=== PATIENT | male | born 1975 | race Caucasian/White ===

== ENCOUNTER 2016-09-15 10:26 | Inpatient (IN) | payer OTHER ==
--- NOTE | 2016-09-15 10:45 | PDOC ---
History of Present Illness <Vamsi Johnson - Last Filed: 09/15/16 13:48> - General History Source: Patient, Family Exam Limitations: No Limitations - History of Present Illness Initial Comments: 09/15/16 11:14 The patient is a 41 year old male with a significant past medical history of diabetes, brought by ambulance to the Emergency Department with vomiting for two days. The patients family reports that the patient has been experiencing nausea and vomiting for two days. The patients family reports that his sugar levels were 440 this morning, which dropped to 240 after taking insulin. The patient states that he has been on insulin for over two years. The patient denies diarrhea, or constipation. Patient denies fever, chills, and cough. Patient denies chest pain, palpitations, and shortness of breath. Surgical Hx: cholecystectomy <Katie Campbell - Last Filed: 09/15/16 14:12> - General Chief Complaint: Vomiting/Diarrhea Stated Complaint: VOMITTING/WEAKNESS Time Seen by Provider: 09/15/16 10:44 Past History <Vamsi Johnson - Last Filed: 09/15/16 13:48> <Katie Campbell - Last Filed: 09/15/16 14:12> - Past Medical History Allergies/Adverse Reactions: Allergies Allergy/AdvReac Type Severity Reaction Status Date / Time No Known Allergies Allergy Verified 09/15/16 10:38 Home Medications: Ambulatory Orders Gabapentin [Neurontin -] 300 mg PO Q4HWA 09/15/16 Insulin Lispro [Humalog] 20 unit SQ HS 09/15/16 Review of Systems - Review of Systems Able to Perform ROS?: Yes Comments:: 09/15/16 11:15 GENERAL/CONSTITUTIONAL: + high blood sugar levels. No fever or chills. No weakness. HEAD, EYES, EARS, NOSE AND THROAT: No change in vision. No ear pain or discharge. No sore throat. CARDIOVASCULAR: No chest pain or shortness of breath. RESPIRATORY: No cough, wheezing, or hemoptysis. GASTROINTESTINAL: + nausea, + vomiting. No diarrhea or constipation. GENITOURINARY: No dysuria, frequency, or change in urination. MUSCULOSKELETAL: No joint or muscle swelling or pain. No neck or back pain. SKIN: No rash NEUROLOGIC: No headache, vertigo, loss of consciousness, or change in strength/ sensation. ENDOCRINE: No increased thirst. No abnormal weight change. HEMATOLOGIC/LYMPHATIC: No anemia, easy bleeding, or history of blood clots. ALLERGIC/IMMUNOLOGIC: No hives or skin allergy. <Katie Campbell - Last Filed: 09/15/16 14:12> *Physical Exam - Vital Signs Last Vital Signs Temp Pulse Resp BP Pulse Ox 104 H 18 109/90 09/15/16 10:30 09/15/16 10:30 09/15/16 10:30 - Physical Exam Comments: 09/15/16 11:15 GENERAL: Awake, alert, and fully oriented, in no acute distress HEAD: No signs of trauma EYES: PERRLA, EOMI, sclera anicteric, conjunctiva clear ENT: Dry mucous membranes. Auricles normal inspection, hearing grossly normal, nares patent, oropharynx clear without exudates. NECK: Normal ROM, supple, no lymphadenopathy, JVD, or masses LUNGS: Breath sounds equal, clear to auscultation bilaterally. No wheezes, and no crackles HEART: Regular rate and rhythm, normal S1 and S2, no murmurs, rubs or gallops ABDOMEN: Soft, nontender, normoactive bowel sounds. No guarding, no rebound. No masses EXTREMITIES: Normal range of motion, no edema. No clubbing or cyanosis. No cords, erythema, or tenderness NEUROLOGICAL: Cranial nerves II through XII grossly intact. Normal speech SKIN: Warm, Dry, bad skin turgor, no rashes or lesions noted. <Katie Campbell - Last Filed: 09/15/16 14:12> Heart Score/ECG Review #1 ECG reviewed & interpreted by me at: 13:12 (EKG reviewed by Dr. Johnson. IMPRESSION: Normal sinus rhythm. Normal axis. Normal rate. Normal EKG. Vent rate 87bpm.) <Katie Campbell - Last Filed: 09/15/16 14:12> ED Treatment Course - LABORATORY CBC & Chemistry Diagram: 09/15/16 11:45 09/15/16 11:45 <Vamsi Johnson - Last Filed: 09/15/16 13:48> - LABORATORY CBC & Chemistry Diagram: 09/15/16 11:45 09/15/16 11:45 - RADIOLOGY Radiograph Interpretation: 09/15/16 12:21 Chest XRay As reviewed by Dr. Jesus Daniel IMPRESSION: Normal chest film. <Katie Campbell - Last Filed: 09/15/16 14:12> Medical Decision Making - Critical Care Time Total Critical Care Time (minutes): 30 (DKA) Critical Care Statement: The care of this patient involved high complexity decision making to prevent further life threatening deterioration of the patient 's condition and/or to evalute & treat vital organ system(s) failure or risk of failure. - Medical Decision Making 09/15/16 13:06 Dr. Swan was called at her office at 1:[address] Johnson about the patient's care. Will call consults for ID and Endocrinology. The patient was informed that he is in DKA. He now admits that he had fevers, chills, and a cough last night. Dr. Gonzalez was called at his office at 1:[address] Johnson about his care. Dr. Talamantes was called at his office at 1:[address] Johnson about his care. ICU was called at 1:30. Waiting for Dr. Hernandez to return call. 09/15/16 13:39 Dr. Hernandez returned call at 1:[address] Johnson about the patient' s admission. <Katie Campbell - Last Filed: 09/15/16 14:12> *DC/Admit/Observation/Transfer - Discharge Dispostion Admit: Yes - Attestations Physician Attestion: 09/15/16 10:45 I, Dr. Vamsi Johnson, attest that this document has been prepared under my direction and personally reviewed by me in its entirety. I further attest, that it accurately reflects all work, treatment, procedures and medical decision -making performed by me. <Vamsi Johnson - Last Filed: 09/15/16 13:48> - Attestations Scribe Attestion: 09/15/16 11:15 Documentation prepared by Katie Campbell, acting as medical malpractice paralegal for Vamsi Johnson DO. <Katie Campbell - Last Filed: 09/15/16 14:12> Diagnosis at time of Disposition: DKA (diabetic ketoacidoses) Qualifiers: Diabetes mellitus type: type 2 Diabetes mellitus complication detail: without coma Qualified Code(s): E13.10 - Other specified diabetes mellitus with ketoacidosis without coma Aspiration into lower respiratory tract Qualifiers: Encounter type: initial encounter Qualified Code(s): T17.800A - Unspecified foreign body in other parts of respiratory tract causing asphyxiation, initial encounter - Discharge Dispostion Condition at time of disposition: Critical
[2016-09-15] MEDS ORDERED: SODIUM CHLORIDE 1,000 ML IV STA ×2 (11:12→13:09)
[2016-09-15] MEDS ORDERED: ONDANSETRON 4 MG/2 ML VIAL IVPB ONE ×2 (11:12→14:35)
[2016-09-15] MEDS ORDERED: ONDANSETRON 4 MG/2 ML VIAL ONE ×3 (11:39→19:54)
[2016-09-15 11:54] LABS: BASOPHIL 0.5 % (0-2.0); MCH 30.1 pg (25.7-33.7); MCHC 33.7 g/dl (32.0-35.9); MEAN CELL VOLUME 89.4 fl (80-96); MEAN PLT VOLUME 10.5 fl (7.5-11.1); PLATELET COUNT 207 K/MM3 (134-434)
[2016-09-15 12:09] LABS: INR 1.01 (0.82-1.09); PROTHROMBIN TIME (PATIENT) 11.1 SEC (9.98-11.88)
[2016-09-15 12:13] LABS: ALBUMIN 4.3 g/dl (3.4-5.0); ANION GAP 18 (8-16); BILIRUBIN,TOTAL 0.6 mg/dL (0.2-1.0); CALCIUM 9.6 mg/dL (8.5-10.1); CO2 20 mmol/L (21-32); CREATININE 1.4 mg/dL (0.7-1.3); GLUCOSE,RANDOM 279 mg/dL (74-106); SGPT/ALT 32 U/L (12-78); TOT PROT 8.6 g/dl (6.4-8.2)
[2016-09-15 12:14] LABS: ALK PHOS 111 U/L (45-117)
[2016-09-15 12:15] LABS: SGOT/AST 16 U/L (15-37)
[2016-09-15 12:44] LABS: ARTERIAL BLD GAS O2 SATURATION 97.9 % (90-98.9)
[2016-09-15 12:45] LABS: ALLENS TEST POSITIVE; ART PUNCT SITE LEFT RADIAL; ARTERIAL BLOOD GAS HCO3 14.2 meq/L (22-26); ARTERIAL BLOOD GAS pH 7.28 (7.35-7.45); LPM/O2% 21%; PT. ON O2? NO; TYPE OF O2 R/A
[2016-09-15 12:47] LABS: ACETONE SERUM POSITIVE MODERATE 2+ (NEGATIVE)
[2016-09-15 12:47] LABS: METHEMOGLOBIN 1.2 % (0.4-1.5)
[2016-09-15] MEDS ORDERED: INSULIN REGULAR HUMAN 100 UNITS/ML *VIAL IVPUSH ONE (12:56)
[2016-09-15] MEDS ORDERED: INSULIN REGULAR 100 UNITS in SODIUM CHLORIDE 99 ML IVPB SCH ×3 (13:00→23:15)
[2016-09-15] MEDS ORDERED: PIPERACILLIN/TAZOB 3.375 GM/50 ML PRE-DOCKED IV ONE (13:47)
[2016-09-15] MEDS ORDERED: PIPERACILLIN/TAZOB 3.375 GM 50 ML IVPB ONE (14:21)
--- NOTE | 2016-09-15 15:48 | EKG ---
Test Reason : Blood Pressure : / mmHG Vent. Rate : 087 BPM Atrial Rate : 087 BPM P-R Int : 126 ms QRS Dur : 084 ms QT Int : 404 ms P-R-T Axes : 079 082 073 degrees QTc Int : 486 ms NORMAL SINUS RHYTHM PROLONGED QT ABNORMAL ECG NO PREVIOUS ECGS AVAILABLE Confirmed by ABELINO SCHAEFER, DANIEL ([id number]) on 09/15/2016 3:48:06 PM Referred By: Confirmed By:DANIEL ROCA MD
--- NOTE | 2016-09-15 16:42 | CONSULT ---
Consult Consult Specialty:: infectious diseases Reason for Consultation:: cough,weakness - History of Present Illness History of Present Illness: 41 year old male with a significant past medical history of diabetes, t with vomiting for two days. The patients family reports that the patient has been experiencing nausea and vomiting for two days. The patients family reports that his sugar levels were 440 this morning, which dropped to 240 after taking insulin. The patient states that he has been on insulin for over two years. patient is non compliant patient complaints of cough but does not have sputum production - History Source History Provided By: Patient, Family Member - Alcohol/Substance Use Hx Alcohol Use: No - Smoking History Smoking history: Never smoked Home Medications - Allergies Allergies/Adverse Reactions: Allergies Allergy/AdvReac Type Severity Reaction Status Date / Time No Known Allergies Allergy Verified 09/15/16 10:38 - Home Medications Home Medications: Ambulatory Orders Gabapentin [Neurontin -] 300 mg PO Q4HWA 09/15/16 Insulin Lispro [Humalog] 20 unit SQ HS 09/15/16 Review of Systems - Review of Systems Constitutional: reports: No Symptoms Eyes: reports: No Symptoms HENT: reports: No Symptoms Neck: reports: No Symptoms Cardiovascular: reports: No Symptoms Respiratory: reports: No Symptoms Gastrointestinal: reports: Nausea, Vomiting Genitourinary: reports: No Symptoms Breasts: reports: No Symptoms Reported Musculoskeletal: reports: No Symptoms Integumentary: reports: No Symptoms Neurological: reports: Change in LOC Endocrine: reports: No Symptoms Hematology/Lymphatic: reports: No Symptoms Psychiatric: reports: No Symptoms Physical Exam Vital Signs: Vital Signs Temperature Pulse Rate 104 H 09/15/16 10:30 Respiratory Rate 18 09/15/16 10:30 Blood Pressure 109/90 09/15/16 10:30 O2 Sat by Pulse Oximetry (%) Constitutional: Yes: Calm, Mild Distress, Other Eyes: Yes: Conjunctiva Clear HENT: Yes: Atraumatic Neck: Yes: Supple Cardiovascular: Yes: Regular Rate and Rhythm Respiratory: Yes: Regular, CTA Bilaterally Gastrointestinal: Yes: Normal Bowel Sounds, Soft Musculoskeletal: Yes: WNL Extremities: Yes: WNL Neurological: Yes: Alert, Oriented Psychiatric: Yes: Alert, Oriented Imaging - Results Chest X-ray: Report Reviewed, Image Reviewed Assessment/Plan - Problems (1) Aspiration into lower respiratory tract Code(s): T17.800A - UNSP FOREIGN BODY IN OTH PRT RESP TRACT CAUSING ASPHYX, INIT Qualifiers: Encounter type: initial encounter Qualified Code(s): T17.800A - Unspecified foreign body in other parts of respiratory tract causing asphyxiation, initial encounter (2) DKA (diabetic ketoacidoses) Code(s): E13.10 - OTH DIABETES MELLITUS WITH KETOACIDOSIS WITHOUT COMA Qualifiers: Diabetes mellitus type: type 2 Diabetes mellitus complication detail: without coma Qualified Code(s): E13.10 - Other specified diabetes mellitus with ketoacidosis without coma patient with anion gap metabolic acidosis being admitted to icu plan hydration insulin electrolyte mgmt rest as per icu,[facility]o to evaluate the patient will start on zosyn cc time 45 min
[2016-09-15 18:33] VITALS: BMI 18.8
[2016-09-15] MEDS ORDERED: PNEUMOC 13-VAL CONJ-DIP CRM/PF 0.5 ML DISP.SYRIN IM ONE (18:33)
[2016-09-15 18:37] LABS: ARTERIAL BLD GAS O2 SATURATION 97.4 % (90-98.9); ARTERIAL BLOOD GAS BASE EXCESS -11.1 meq/l (-2-2)
[2016-09-15 18:38] LABS: ALLENS TEST POSITIVE; ART PUNCT SITE RIGHT RADIAL; LPM/O2% ROOM AIR; PT. ON O2? NO
[2016-09-15 18:40] LABS: ARTERIAL BLOOD GAS pH 7.29 (7.35-7.45)
[2016-09-15] MEDS: PIPERACILLIN/TAZOB 3.375 GM 50 ML IVPB SCH (18:47)
[2016-09-15 20:25] LABS: MCH 29.6 pg (25.7-33.7); MCHC 33.1 g/dl (32.0-35.9); MEAN CELL VOLUME 89.4 fl (80-96); MEAN PLT VOLUME 10.6 fl (7.5-11.1); PLATELET COUNT 175 K/MM3 (134-434); RDW 13.5 % (11.9-15.9); WHITE BLOOD COUNT 15.2 K/mm3 (4.0-10.0)
[2016-09-15 20:53] LABS: ALBUMIN 3.2 g/dl (3.4-5.0); ANION GAP 17 (8-16); BILIRUBIN,TOTAL 0.5 mg/dL (0.2-1.0); CALCIUM 8.1 mg/dL (8.5-10.1); CO2 15 mmol/L (21-32); GLUCOSE,RANDOM 202 mg/dL (74-106); SGOT/AST 11 U/L (15-37); SGPT/ALT 22 U/L (12-78); TOT PROT 6.5 g/dl (6.4-8.2)
[2016-09-15 20:54] LABS: ALK PHOS 84 U/L (45-117)
--- NOTE | 2016-09-15 21:21 | CONSULT ---
Consult Consult Specialty:: Pulm/CCM Reason for Consultation:: DKA - History of Present Illness Chief Complaint: Nausea and vomiting History of Present Illness: 41 yom with PMHx of DMII c/b peripheral neuropathy who was BIBA with c/o n/v for two days. The patients family reports that his sugar levels were 440 this morning, which dropped to 240 after taking insulin. The patient states that he has been on insulin for over ten years. In ED ph7.28, AG 18, HCO3 20, WBC 15 with 88% neuts. Urine + acetone, lipase 333. Pt reported fever,chills and cough the previous night. CXR clear. Blood cxls sent. Fluid bolus given. Started empirically on Zosyn. Transferred to ICU for further management. In ICU pt A+O x3. C/o malaise and abd pain. BP 111/77, HR 86; O2 sat 100% on room air. Regular cough with gagging and vomiting. Reports 2 episodes of diarrhea night prior to admission. Denies sick contacts. Reported one previous episode of DKA but does not remember the setting. Restarted insulin drip. BG 202. Cont IVF and antibiotics. - History Source History Provided By: Patient, Medical Record Limitations to Obtaining History: No Limitations - Alcohol/Substance Use Hx Alcohol Use: No - Smoking History Smoking history: Never smoked Home Medications - Allergies Allergies/Adverse Reactions: Allergies Allergy/AdvReac Type Severity Reaction Status Date / Time No Known Allergies Allergy Verified 09/15/16 10:38 - Home Medications Home Medications: Ambulatory Orders Gabapentin [Neurontin -] 300 mg PO Q4HWA 09/15/16 Insulin Lispro [Humalog] 20 unit SQ HS 09/15/16 Family Disease History - Family Disease History Family History: Unremarkable Review of Systems - Review of Systems Constitutional: reports: Loss of Appetite, Weakness Eyes: reports: No Symptoms HENT: reports: No Symptoms Neck: reports: No Symptoms Cardiovascular: reports: No Symptoms Respiratory: reports: Cough Gastrointestinal: reports: Abdominal Pain, Vomiting Genitourinary: reports: No Symptoms Musculoskeletal: reports: No Symptoms Integumentary: reports: No Symptoms Neurological: reports: No Symptoms Endocrine: reports: No Symptoms Hematology/Lymphatic: reports: No Symptoms Psychiatric: reports: No Symptoms Physical Exam Vital Signs: Vital Signs Temperature 99.6 F 09/15/16 18:17 Pulse Rate 86 09/15/16 20:16 Respiratory Rate 16 09/15/16 20:16 Blood Pressure 117/82 09/15/16 20:16 O2 Sat by Pulse Oximetry (%) 99 09/15/16 20:17 Constitutional: Yes: Well Nourished Eyes: Yes: WNL HENT: Yes: Normocephalic Neck: Yes: Supple Respiratory: Yes: Regular, CTA Bilaterally, Cough Gastrointestinal: Yes: Soft Musculoskeletal: Yes: WNL Extremities: Yes: WNL Edema: No Peripheral Pulses WNL: Yes Integumentary: Yes: Tattoos Neurological: Yes: Alert, Oriented ...Motor Strength: WNL Labs: CBC, BMP 09/15/16 20:02 09/15/16 20:02 Problem List - Problems (1) Aspiration into lower respiratory tract Code(s): T17.800A - UNSP FOREIGN BODY IN OTH PRT RESP TRACT CAUSING ASPHYX, INIT Qualifiers: Encounter type: initial encounter Qualified Code(s): T17.800A - Unspecified foreign body in other parts of respiratory tract causing asphyxiation, initial encounter (2) DKA (diabetic ketoacidoses) Code(s): E13.10 - OTH DIABETES MELLITUS WITH KETOACIDOSIS WITHOUT COMA Qualifiers: Diabetes mellitus type: type 2 Diabetes mellitus complication detail: without coma Qualified Code(s): E13.10 - Other specified diabetes mellitus with ketoacidosis without coma Assessment/Plan 41yom with PMHx of DMII on insulin now with DKA m/l in setting of infection. Plan: -Insulin drip; adjust per q1 fingerstick -Continue IVF -Switch to D5NS@125 -Monitor Potassium and BMP q4-6h -Replete electrolytes -f/u cultures -apprec ID consult -Cont Zosyn -monitor UOP -Zofran and reglan for n/v -Aspiration precautions. -NPO for now; advance diet when tolerated -Endocrine consult.
[2016-09-15] MEDS: ONDANSETRON 4 MG/2 ML VIAL IVPB PRN (21:23)
[2016-09-15] MEDS ORDERED: DEXTROSE 5%-NORMAL SALINE 1,000 ML IV SCH (22:15)
[2016-09-15 22:29] LABS: MAGNESIUM 1.5 mg/dL (1.8-2.4); PHOSPHOROUS 2.8 mg/dL (2.5-4.9)
[2016-09-15] MEDS: METOCLOPRAMIDE HCL INJECTION 10 MG/2 ML VIAL IVPB SCH (23:00)
[2016-09-15] MEDS ORDERED: MAGNESIUM SULF 50% (8.12 MEQ/2 ML-1 GM VIAL) IVPB ONE (23:09)
[2016-09-15] MEDS ORDERED: SODIUM CHLORIDE 0.45% 1,000 ML IV SCH (23:30)
[2016-09-16 00:22] LABS: ANION GAP 15 (8-16); CALCIUM 7.8 mg/dL (8.5-10.1); CO2 18 mmol/L (21-32); GLUCOSE,RANDOM 222 mg/dL (74-106)
--- NOTE | 2016-09-16 00:37 | CONSULT ---
Consult Consult Specialty:: endocrine Referred by:: dr.rocco mondragon Reason for Consultation:: dka - History of Present Illness Chief Complaint: nausea and vomiting History of Present Illness: 41 year old male with a significant past medical history of diabetes, brought by ambulance to the Emergency Department with vomiting for two days. The patient s family reports that the patient has been experiencing nausea and vomiting for two days. The patients family reports that his sugar levels were 440 this morning, which dropped to 240 after taking insulin. he has been diabetic for past 10 years,has diabetic foot pain and limited walking ability - History Source History Provided By: Patient - Alcohol/Substance Use Hx Alcohol Use: No - Smoking History Smoking history: Never smoked Home Medications - Allergies Allergies/Adverse Reactions: Allergies Allergy/AdvReac Type Severity Reaction Status Date / Time No Known Allergies Allergy Verified 09/15/16 10:38 - Home Medications Home Medications: Ambulatory Orders Gabapentin [Neurontin -] 300 mg PO Q4HWA 09/15/16 Insulin Lispro [Humalog] 20 unit SQ HS 09/15/16 Review of Systems - Review of Systems Constitutional: reports: Lethargy Eyes: reports: Blurred Vision HENT: reports: No Symptoms Neck: reports: No Symptoms Cardiovascular: reports: No Symptoms Respiratory: reports: No Symptoms Gastrointestinal: reports: Nausea Genitourinary: reports: No Symptoms Breasts: reports: No Symptoms Reported Musculoskeletal: reports: Extremity Pain, Muscle Pain, Muscle Cramps Integumentary: reports: No Symptoms Neurological: reports: Weakness Endocrine: reports: Unexplained Weight Loss Hematology/Lymphatic: reports: No Symptoms Psychiatric: reports: No Symptoms Physical Exam Vital Signs: Vital Signs Temperature 99.6 F 09/15/16 18:17 Pulse Rate 86 09/15/16 20:16 Respiratory Rate 16 09/15/16 20:16 Blood Pressure 117/82 09/15/16 20:16 O2 Sat by Pulse Oximetry (%) 99 09/15/16 20:17 Constitutional: Yes: Anxious Eyes: Yes: EOM Intact HENT: Yes: Normocephalic Neck: Yes: Trachea Midline Cardiovascular: Yes: Regular Rate and Rhythm Respiratory: Yes: CTA Bilaterally Gastrointestinal: Yes: Normal Bowel Sounds, Vomiting ...Rectal Exam: Yes: Deferred Renal/: Yes: WNL Breast(s): Yes: WNL Musculoskeletal: Yes: WNL Extremities: Yes: WNL Integumentary: Yes: WNL Neurological: Yes: WNL, Alert, Oriented Labs: CBC, BMP 09/15/16 20:02 09/16/16 00:00 Problem List - Problems (1) DKA (diabetic ketoacidoses) Code(s): E13.10 - OTH DIABETES MELLITUS WITH KETOACIDOSIS WITHOUT COMA Qualifiers: Diabetes mellitus type: type 2 Diabetes mellitus complication detail: without coma Qualified Code(s): E13.10 - Other specified diabetes mellitus with ketoacidosis without coma Assessment/Plan Current Active Problems Aspiration into lower respiratory tract (Acute) DKA (diabetic ketoacidoses) (Acute) Abnormal Lab Results 09/15/16 09/15/16 09/15/16 11:45 11:45 12:40 WBC 16.0 H Neutrophils % 88.0 H Lymphocytes % 6.0 L ABG pH 7.28 L ABG pCO2 at Pt Temp 30.8 L ABG pO2 at Pt Temp 111.0 H ABG HCO3 14.2 L* ABG Base Excess -11.0 L* Sodium 135 L Potassium 5.4 H Chloride 97 L Carbon Dioxide 20 L Anion Gap 18 H BUN 24 H Creatinine 1.4 H Random Glucose 279 H Serum Osmolality Calcium Magnesium AST Total Protein 8.6 H Albumin Total Amylase 09/15/16 09/15/16 09/15/16 18:30 20:02 20:02 WBC 15.2 H Neutrophils % Lymphocytes % ABG pH 7.29 L ABG pCO2 at Pt Temp 30.4 L ABG pO2 at Pt Temp 102.0 H ABG HCO3 14.0 L* ABG Base Excess -11.1 L* Sodium Potassium Chloride 109 H D Carbon Dioxide 15 L D Anion Gap 17 H BUN Creatinine Random Glucose 202 H D Serum Osmolality Calcium 8.1 L Magnesium AST 11 L D Total Protein Albumin 3.2 L D Total Amylase 09/15/16 09/15/16 09/16/16 21:35 21:56 00:00 WBC Neutrophils % Lymphocytes % ABG pH ABG pCO2 at Pt Temp ABG pO2 at Pt Temp ABG HCO3 ABG Base Excess Sodium Potassium Chloride 108 H Carbon Dioxide 18 L Anion Gap BUN Creatinine Random Glucose 222 H Serum Osmolality 308 H Calcium 7.8 L Magnesium 1.5 L AST Total Protein Albumin Total Amylase 123 H plan: ivd5.5ns @175/hr iv insulin ip bgm q1hrs scale for controll repeat bmp 4 hrs
--- NOTE | 2016-09-16 00:51 | HP ---
Admitting History and Physical - Admission History of Present Illness: The patient is a 41 year old male with a significant past medical history of diabetes, brought by ambulance to the Emergency Department with vomiting for two days. The patients family reports that the patient has been experiencing nausea and vomiting for two days. The patients family reports that his sugar levels were 440 this morning, which dropped to 240 after taking insulin. The patient states that he has been on insulin for over two years. - Past Medical History Endocrine: Yes: Diabetes Mellitus - Smoking History Smoking history: Never smoked - Alcohol/Substance Use Hx Alcohol Use: No Home Medications - Allergies Allergies/Adverse Reactions: Allergies Allergy/AdvReac Type Severity Reaction Status Date / Time No Known Allergies Allergy Verified 09/15/16 10:38 - Home Medications Home Medications: Ambulatory Orders Gabapentin [Neurontin -] 300 mg PO Q4HWA 09/15/16 Insulin Lispro [Humalog] 20 unit SQ HS 09/15/16 Family Disease History - Family Disease History Family History: Unremarkable Review of Systems - Review of Systems Constitutional: reports: Weakness Eyes: reports: No Symptoms HENT: reports: No Symptoms Neck: reports: No Symptoms Cardiovascular: reports: No Symptoms Respiratory: reports: No Symptoms Gastrointestinal: reports: Abdominal Pain, Nausea, Vomiting Genitourinary: denies: No Symptoms Physical Examination Vital Signs: Vital Signs Temperature 99.6 F 09/15/16 18:17 Pulse Rate 86 09/15/16 20:16 Respiratory Rate 16 09/15/16 20:16 Blood Pressure 117/82 09/15/16 20:16 O2 Sat by Pulse Oximetry (%) 99 09/15/16 20:17 Constitutional: Yes: No Distress Eyes: Yes: WNL HENT: Yes: WNL Neck: Yes: WNL, Supple Cardiovascular: Yes: WNL, Regular Rate and Rhythm Respiratory: Yes: WNL, Regular, CTA Bilaterally Gastrointestinal: Yes: WNL, Normal Bowel Sounds, Soft Musculoskeletal: Yes: WNL Extremities: Yes: WNL Edema: No Neurological: Yes: WNL, Alert, Oriented ...Motor Strength: WNL Labs: CBC, BMP 09/15/16 20:02 09/16/16 00:00 Problem List - Problems (1) DKA (diabetic ketoacidoses) Assessment/Plan: Pt started on IV insulip drip ICU monitoring Endo consult Cont IVF Code(s): E13.10 - OTH DIABETES MELLITUS WITH KETOACIDOSIS WITHOUT COMA Qualifiers: Diabetes mellitus type: type 2 Diabetes mellitus complication detail: without coma Qualified Code(s): E13.10 - Other specified diabetes mellitus with ketoacidosis without coma
[2016-09-16] MEDS: PIPERACILLIN/TAZOB 3.375 GM 50 ML IVPB SCH ×2 (04:04→10:11)
[2016-09-16 05:18] LABS: URINE APPEARANCE CLEAR; URINE BILIRUBIN NEGATIVE (NEGATIVE); URINE COLOR STRAW; URINE GLUCOSE (UA) 3+ (NEGATIVE); URINE KETONE 2+ (NEGATIVE); URINE LEUK ESTERASE NEGATIVE (NEGATIVE); URINE NITRITE NEGATIVE (NEGATIVE); URINE PROTEIN NEGATIVE (NEGATIVE); URINE UROBILINOGEN NEGATIVE E.U./dl (0.2-1.0)
[2016-09-16 05:19] LABS: URINE BLOOD 1+ (NEGATIVE)
[2016-09-16 05:20] LABS: URINE RBC 3 /hpf (0-3); URINE WBC 2 /hpf (3-5)
[2016-09-16] MEDS: METOCLOPRAMIDE HCL INJECTION 10 MG/2 ML VIAL IVPB SCH ×3 (05:34→21:38)
[2016-09-16] MEDS: ONDANSETRON 4 MG/2 ML VIAL IVPB PRN (05:34)
[2016-09-16] MEDS ORDERED: D5-NS + 20 MEQ KCL - 1,000 ML IV SCH (06:00)
[2016-09-16 06:33] LABS: MCH 29.8 pg (25.7-33.7); MCHC 33.6 g/dl (32.0-35.9); MEAN CELL VOLUME 88.7 fl (80-96); MEAN PLT VOLUME 10.2 fl (7.5-11.1); PLATELET COUNT 177 K/MM3 (134-434); WHITE BLOOD COUNT 13.8 K/mm3 (4.0-10.0)
[2016-09-16 06:57] LABS: ALBUMIN 2.9 g/dl (3.4-5.0); ANION GAP 12 (8-16); CALCIUM 8.2 mg/dL (8.5-10.1); CO2 21 mmol/L (21-32); GLUCOSE,RANDOM 162 mg/dL (74-106)
[2016-09-16 07:03] LABS: ALK PHOS 74 U/L (45-117); BILIRUBIN,TOTAL 0.5 mg/dL (0.2-1.0); SGOT/AST 12 U/L (15-37); SGPT/ALT 20 U/L (12-78); TOT PROT 5.7 g/dl (6.4-8.2); TROPONIN I < 0.02 ng/ml (0.00-0.05)
[2016-09-16] MEDS: HEPARIN NA (PORCINE) 5,000 UNITS/ML 1ML VIAL SQ SCH ×2 (10:11→21:38)
--- NOTE | 2016-09-16 12:10 | PN ---
Physical Exam: SUBJECTIVE: Patient seen and examined in ICU. He is feeling better today but still weak and a little bit nauseous. OBJECTIVE: Vital Signs Period Temp Pulse Resp BP Sys/[place] Pulse Ox Last 24 Hr 97.9 F-99.6 F 73-106 16-18 94-126/61-82 99-99 GENERAL: The patient is awake, alert, and fully oriented, in no acute distress. HEAD: Normal with no signs of trauma. EYES: extraocular movements intact, sclera anicteric, conjunctiva clear. ENT: oropharynx clear without exudates, moist mucous membranes. NECK: Trachea midline, full range of motion, supple. LUNGS: Breath sounds equal, clear to auscultation bilaterally, no wheezes, no crackles, no accessory muscle use. HEART: Regular rate and rhythm, S1, S2 without murmur, rub or gallop. ABDOMEN: Soft, nontender, nondistended, normoactive bowel sounds, no guarding, no rebound, no hepatosplenomegaly, no masses. EXTREMITIES: 2+ pulses, warm, no edema. NEUROLOGICAL: No facial asymmetry, normal speech, gait not observed. PSYCH: Normal mood, normal affect. SKIN: Warm, dry, normal turgor, no rashes or lesions noted Laboratory Results - last 24 hr 09/15/16 09/15/16 09/15/16 14:26 16:12 18:30 WBC RBC Hgb Hct MCV MCHC RDW Plt Count MPV Puncture Site Right radial ABG pH 7.29 L ABG pCO2 at Pt Temp 30.4 L ABG pO2 at Pt Temp 102.0 H ABG HCO3 14.0 L* ABG O2 Sat (Measured) 97.4 ABG O2 Content 17.5 ABG Base Excess -11.1 L* William Test Positive Oxygen Flow Rate Room air PEEP 0.0 Sodium Potassium Chloride Carbon Dioxide Anion Gap BUN Creatinine Creat Clearance w eGFR POC Glucometer 248.14824 189.19454 Random Glucose Hemoglobin A1c % Serum Osmolality Calcium Phosphorus Magnesium Total Bilirubin AST ALT Alkaline Phosphatase Creatine Kinase Troponin I Total Protein Albumin Total Amylase Lipase Urine Color Urine Appearance Urine pH Urine Protein Urine Glucose (UA) Urine Ketones Urine Blood Urine Nitrite Urine Bilirubin Urine Urobilinogen Ur Leukocyte Esterase Urine RBC Urine WBC Ur Epithelial Cells 09/15/16 09/15/16 09/15/16 18:55 20:02 20:02 WBC 15.2 H RBC 4.52 Hgb 13.4 D Hct 40.4 D MCV 89.4 MCHC 33.1 RDW 13.5 Plt Count 175 MPV 10.6 Puncture Site ABG pH ABG pCO2 at Pt Temp ABG pO2 at Pt Temp ABG HCO3 ABG O2 Sat (Measured) ABG O2 Content ABG Base Excess William Test Oxygen Flow Rate PEEP Sodium 141 Potassium 4.3 D Chloride 109 H D Carbon Dioxide 15 L D Anion Gap 17 H BUN 17 D Creatinine 1.0 D Creat Clearance w eGFR > 60 POC Glucometer [phone] Random Glucose 202 H D Hemoglobin A1c % Serum Osmolality Calcium 8.1 L Phosphorus Magnesium Total Bilirubin 0.5 AST 11 L D ALT 22 D Alkaline Phosphatase 84 D Creatine Kinase Troponin I Total Protein 6.5 D Albumin 3.2 L D Total Amylase Lipase Urine Color Urine Appearance Urine pH Urine Protein Urine Glucose (UA) Urine Ketones Urine Blood Urine Nitrite Urine Bilirubin Urine Urobilinogen Ur Leukocyte Esterase Urine RBC Urine WBC Ur Epithelial Cells 09/15/16 09/15/16 09/15/16 21:35 21:56 22:08 WBC RBC Hgb Hct MCV MCHC RDW Plt Count MPV Puncture Site ABG pH ABG pCO2 at Pt Temp ABG pO2 at Pt Temp ABG HCO3 ABG O2 Sat (Measured) ABG O2 Content ABG Base Excess William Test Oxygen Flow Rate PEEP Sodium Potassium Chloride Carbon Dioxide Anion Gap BUN Creatinine Creat Clearance w eGFR POC Glucometer 283.18020 Random Glucose Hemoglobin A1c % Serum Osmolality 308 H Calcium Phosphorus 2.8 Magnesium 1.5 L Total Bilirubin AST ALT Alkaline Phosphatase Creatine Kinase Troponin I Total Protein Albumin Total Amylase 123 H Lipase 251 Urine Color Urine Appearance Urine pH Urine Protein Urine Glucose (UA) Urine Ketones Urine Blood Urine Nitrite Urine Bilirubin Urine Urobilinogen Ur Leukocyte Esterase Urine RBC Urine WBC Ur Epithelial Cells 09/16/16 09/16/16 09/16/16 00:00 02:10 04:15 WBC RBC Hgb Hct MCV MCHC RDW Plt Count MPV Puncture Site ABG pH ABG pCO2 at Pt Temp ABG pO2 at Pt Temp ABG HCO3 ABG O2 Sat (Measured) ABG O2 Content ABG Base Excess William Test Oxygen Flow Rate PEEP Sodium 141 Potassium 3.7 Chloride 108 H Carbon Dioxide 18 L Anion Gap 15 BUN 15 Creatinine 1.0 Creat Clearance w eGFR POC Glucometer 161.16422 98.36046 Random Glucose 222 H Hemoglobin A1c % Serum Osmolality Calcium 7.8 L Phosphorus Magnesium Total Bilirubin AST ALT Alkaline Phosphatase Creatine Kinase Troponin I Total Protein Albumin Total Amylase Lipase Urine Color Urine Appearance Urine pH Urine Protein Urine Glucose (UA) Urine Ketones Urine Blood Urine Nitrite Urine Bilirubin Urine Urobilinogen Ur Leukocyte Esterase Urine RBC Urine WBC Ur Epithelial Cells 09/16/16 09/16/16 09/16/16 05:00 05:20 05:20 WBC 13.8 H RBC 4.28 Hgb 12.8 Hct 37.9 MCV 88.7 MCHC 33.6 RDW 14.0 Plt Count 177 MPV 10.2 Puncture Site ABG pH ABG pCO2 at Pt Temp ABG pO2 at Pt Temp ABG HCO3 ABG O2 Sat (Measured) ABG O2 Content ABG Base Excess William Test Oxygen Flow Rate PEEP Sodium 142 Potassium 3.7 Chloride 109 H Carbon Dioxide 21 Anion Gap 12 BUN 13 Creatinine 1.0 Creat Clearance w eGFR > 60 POC Glucometer Random Glucose 162 H D Hemoglobin A1c % Serum Osmolality Calcium 8.2 L Phosphorus Magnesium Total Bilirubin 0.5 AST 12 L ALT 20 Alkaline Phosphatase 74 Creatine Kinase 109 Troponin I < 0.02 Total Protein 5.7 L Albumin 2.9 L Total Amylase Lipase Urine Color Straw Urine Appearance Clear Urine pH 5.0 Urine Protein Negative Urine Glucose (UA) 3+ H Urine Ketones 2+ H Urine Blood 1+ H Urine Nitrite Negative Urine Bilirubin Negative Urine Urobilinogen Negative Ur Leukocyte Esterase Negative Urine RBC 3 Urine WBC 2 Ur Epithelial Cells Rare 09/16/16 09/16/16 09/16/16 05:20 05:29 09:11 WBC RBC Hgb Hct MCV MCHC RDW Plt Count MPV Puncture Site ABG pH ABG pCO2 at Pt Temp ABG pO2 at Pt Temp ABG HCO3 ABG O2 Sat (Measured) ABG O2 Content ABG Base Excess William Test Oxygen Flow Rate PEEP Sodium Potassium Chloride Carbon Dioxide Anion Gap BUN Creatinine Creat Clearance w eGFR POC Glucometer 147.74186 150.45211 Random Glucose Hemoglobin A1c % 12.3 H Serum Osmolality Calcium Phosphorus Magnesium Total Bilirubin AST ALT Alkaline Phosphatase Creatine Kinase Troponin I Total Protein Albumin Total Amylase Lipase Urine Color Urine Appearance Urine pH Urine Protein Urine Glucose (UA) Urine Ketones Urine Blood Urine Nitrite Urine Bilirubin Urine Urobilinogen Ur Leukocyte Esterase Urine RBC Urine WBC Ur Epithelial Cells Active Medications Generic Name Dose Route Start Last Admin Trade Name Patrick PRN Reason Stop Dose Admin Heparin Sodium (Porcine) 5,000 unit 09/16/16 10:00 09/16/16 10:11 Heparin - SQ 5,000 unit BID ANG[facility] Administration Piperacillin Sod/Tazobactam Sod 50 mls @ 100 mls/hr 09/15/16 18:00 09/16/16 10: 11 Zosyn 3.375gm Ivpb (Pre-Docked) IVPB 100 mls/hr Q8H-IV ANGUS Administration Protocol Insulin Human Regular 100 100 mls @ 2 mls/hr 09/15/16 23:15 09/16/16 07:00 units/ Sodium Chloride IVPB 4 units/hr TITR ANGUS Titration Protocol 2 UNITS/HR Dextrose/Sodium Chloride 1,000 mls @ 125 mls/hr 09/16/16 06:00 09/16/16 06:58 Dextrose 5%-Normal Saline+20 Meq Kcl - IV 125 mls/hr ASDIR ANGUS Administration Metoclopramide HCl 10 mg 09/15/16 23:00 09/16/16 05:34 Reglan Injection - IVPB 10 mg TID ANGUS Administration Ondansetron HCl 4 mg 09/15/16 21:15 09/16/16 05:34 Zofran Injection IVPB 4 mg Q6H PRN Administration NAUSEA AND/OR VOMITING ASSESSMENT/PLAN: 41yom with PMHx of DMII on insulin now with DKA m/l in setting of infection. DKA: -Insulin drip stopped yesterday -IVF stopped -anion gap closed, glu normalized, electrolites nl -Replete electrolytes if needed -discussed with [id number] Dr. Gonzalez who recommended ISS and Levemir 35 u in AM Leukocytosis: -f/u cultures -Cont. Zosyn -will discuss with Dr. Talamantes -repeated CXR, no signs of aspiration pneumonia Nausea and vomiting: -Zofran and Reglan F/E/N; D5/NS/diabetic diet Disposition: transfer to med surg Problem List - Problems (1) DKA (diabetic ketoacidoses) Code(s): E13.10 - OTH DIABETES MELLITUS WITH KETOACIDOSIS WITHOUT COMA Qualifiers: Diabetes mellitus type: type 2 Diabetes mellitus complication detail: without coma Qualified Code(s): E13.10 - Other specified diabetes mellitus with ketoacidosis without coma Visit type - Emergency Visit Emergency Visit: Yes ED Registration Date: 09/15/16 Care time: The patient presented to the Emergency Department on the above date and was hospitalized for further evaluation of their emergent condition. - New Patient This patient is new to me today: No - Critical Care Critical Care patient: Yes Total Critical Care Time (in minutes): 40 Critical Care Statement: The care of this patient involved high complexity decision making to prevent further life threatening deterioration of the patient 's condition and/or to evalute & treat vital organ system(s) failure or risk of failure.
--- NOTE | 2016-09-16 17:17 | PN ---
Progress Note, Physician History of Present Illness: patient much better extremely weak says he has no strength at all - Current Medication List Current Medications: Active Medications Heparin Sodium (Porcine) (Heparin -) 5,000 unit SQ BID [facility] Last Admin: 09/16/16 10:11 Dose: 5,000 unit Piperacillin Sod/Tazobactam Sod (Zosyn 3.375gm Ivpb (Pre-Docked)) 50 mls @ 100 mls/hr IVPB Q8H-IV [facility] PRN Reason: Protocol Last Admin: 09/16/16 10:11 Dose: 100 mls/hr Insulin Aspart (Novolog Vial Sliding Scale -) 1 vial SQ ACHS [facility] PRN Reason: Protocol Insulin Detemir (Levemir Vial) 35 units SQ AM [facility] Metoclopramide HCl (Reglan Injection -) 10 mg IVPB TID [facility] Last Admin: 09/16/16 15:01 Dose: 10 mg Ondansetron HCl (Zofran Injection) 4 mg IVPB Q6H PRN PRN Reason: NAUSEA AND/OR VOMITING Last Admin: 09/16/16 05:34 Dose: 4 mg - Objective Vital Signs: Vital Signs Temperature 98.8 F 09/16/16 14:00 Pulse Rate 83 09/16/16 06:00 Respiratory Rate 18 09/16/16 06:00 Blood Pressure 102/62 09/16/16 06:00 O2 Sat by Pulse Oximetry (%) 99 09/16/16 09:00 Constitutional: Yes: No Distress, Calm, Other (weakness) Cardiovascular: Yes: Regular Rate and Rhythm Respiratory: Yes: Regular, CTA Bilaterally Gastrointestinal: Yes: Normal Bowel Sounds, Soft Musculoskeletal: Yes: WNL Extremities: Yes: WNL Neurological: Yes: Alert, Oriented Psychiatric: Yes: Alert, Oriented Labs: CBC, BMP 09/16/16 05:20 09/16/16 05:20 INR, PTT INR 1.01 (0.82-1.09) 09/15/16 11:45 Assessment/Plan - Problems (1) Aspiration into lower respiratory tract Code(s): T17.800A - UNSP FOREIGN BODY IN OTH PRT RESP TRACT CAUSING ASPHYX, INIT Qualifiers: Encounter type: initial encounter Qualified Code(s): T17.800A - Unspecified foreign body in other parts of respiratory tract causing asphyxiation, initial encounter (2) DKA (diabetic ketoacidoses) Code(s): E13.10 - OTH DIABETES MELLITUS WITH KETOACIDOSIS WITHOUT COMA Qualifiers: Diabetes mellitus type: type 2 Diabetes mellitus complication detail: without coma Qualified Code(s): E13.10 - Other specified diabetes mellitus with ketoacidosis without coma patient with anion gap metabolic acidosis being admitted to icu plan hydration insulin electrolyte mgmt rest as per icu,primay endo to evaluate the patient will switch to ceftriaxone all cx reports noted cc time 40 min
[2016-09-16] MEDS: INSULIN SLIDING SCALE (NOVOLOG) 1 VIAL SQ SCH ×2 (17:34→21:37)
[2016-09-17] MEDS: INSULIN DETEMIR 100 UNITS/ML MDV SQ SCH (06:19)
[2016-09-17] MEDS: METOCLOPRAMIDE HCL INJECTION 10 MG/2 ML VIAL IVPB SCH (06:21)
[2016-09-17] MEDS: INSULIN SLIDING SCALE (NOVOLOG) 1 VIAL SQ SCH ×4 (06:21→21:51)
[2016-09-17] MEDS ORDERED: ONDANSETRON 4 MG/2 ML VIAL IVPB PRN (07:23)
[2016-09-17] MEDS: HEPARIN NA (PORCINE) 5,000 UNITS/ML 1ML VIAL SQ SCH ×2 (09:49→21:52)
[2016-09-17] MEDS ORDERED: cefTRIAXone 1 GM/50 ML BAG (PRE-DOCKED) IVPB SCH (10:00)
[2016-09-17] MEDS ORDERED: CEFTRIAXONE 1 GM in DEXTROSE 5%-WATER - 50 ML IVPB SCH (10:00)
--- NOTE | 2016-09-17 13:25 | PN ---
Progress Note, Physician History of Present Illness: patient much better doing well weakness improving - Current Medication List Current Medications: Active Medications Ceftriaxone Sodium (Rocephin 1gm Ivpb (Pre-Docked)) 1 gm IVPB DAILY [facility] Last Admin: 09/17/16 09:49 Dose: 1 gm Heparin Sodium (Porcine) (Heparin -) 5,000 unit SQ BID [facility] Last Admin: 09/17/16 09:49 Dose: 5,000 unit Insulin Aspart (Novolog Vial Sliding Scale -) 1 vial SQ ACHS [facility] PRN Reason: Protocol Last Admin: 09/17/16 11:47 Dose: 2 units Insulin Detemir (Levemir Vial) 35 units SQ AM [facility] Last Admin: 09/17/16 06:19 Dose: 35 units Metoclopramide HCl (Reglan Injection -) 10 mg IVPB TID [facility] Ondansetron HCl (Zofran Injection) 4 mg IVPB Q6H PRN PRN Reason: NAUSEA AND/OR VOMITING - Objective Vital Signs: Vital Signs Temperature 99.2 F 09/17/16 10:00 Pulse Rate 74 09/17/16 10:00 Respiratory Rate 20 09/17/16 10:00 Blood Pressure 117/76 09/17/16 10:00 O2 Sat by Pulse Oximetry (%) 98 09/17/16 09:00 Constitutional: Yes: No Distress, Calm Cardiovascular: Yes: Regular Rate and Rhythm Respiratory: Yes: Regular, CTA Bilaterally Gastrointestinal: Yes: Normal Bowel Sounds, Soft Musculoskeletal: Yes: WNL Extremities: Yes: WNL Neurological: Yes: Alert, Oriented Psychiatric: Yes: Alert, Oriented Labs: CBC, BMP 09/16/16 05:20 09/16/16 05:20 INR, PTT INR 1.01 (0.82-1.09) 09/15/16 11:45 Assessment/Plan - Problems (1) Aspiration into lower respiratory tract Code(s): T17.800A - UNSP FOREIGN BODY IN OTH PRT RESP TRACT CAUSING ASPHYX, INIT Qualifiers: Encounter type: initial encounter Qualified Code(s): T17.800A - Unspecified foreign body in other parts of respiratory tract causing asphyxiation, initial encounter (2) DKA (diabetic ketoacidoses) Code(s): E13.10 - OTH DIABETES MELLITUS WITH KETOACIDOSIS WITHOUT COMA Qualifiers: Diabetes mellitus type: type 2 Diabetes mellitus complication detail: without coma Qualified Code(s): E13.10 - Other specified diabetes mellitus with ketoacidosis without coma patient with anion gap metabolic acidosis being admitted to icu plan stable no issues will stop abx rest as per primary
[2016-09-17] MEDS ORDERED: METOCLOPRAMIDE HCL INJECTION 10 MG/2 ML VIAL IVPB SCH (14:00)
--- NOTE | 2016-09-18 01:20 | PN ---
Progress Note, Physician History of Present Illness: Pt seen and examined 09/17/16 however note was entered late - Current Medication List Current Medications: Active Medications Heparin Sodium (Porcine) (Heparin -) 5,000 unit SQ BID [facility] Last Admin: 09/17/16 21:52 Dose: 5,000 unit Insulin Aspart (Novolog Vial Sliding Scale -) 1 vial SQ ACHS [facility] PRN Reason: Protocol Last Admin: 09/17/16 21:51 Dose: 6 units Insulin Detemir (Levemir Vial) 35 units SQ AM [facility] Last Admin: 09/17/16 06:19 Dose: 35 units - Objective Vital Signs: Vital Signs Temperature 99.0 F 09/17/16 21:00 Pulse Rate 60 09/17/16 21:00 Respiratory Rate 20 09/17/16 21:00 Blood Pressure 125/79 09/17/16 21:00 O2 Sat by Pulse Oximetry (%) 98 09/17/16 09:00 Constitutional: Yes: No Distress Eyes: Yes: WNL HENT: Yes: WNL Neck: Yes: WNL, Supple Cardiovascular: Yes: WNL, Regular Rate and Rhythm Respiratory: Yes: WNL, Regular, CTA Bilaterally Gastrointestinal: Yes: WNL, Normal Bowel Sounds, Soft Labs: CBC, BMP 09/16/16 05:20 09/16/16 05:20 INR, PTT INR 1.01 (0.82-1.09) 09/15/16 11:45 Problem List - Problems (1) DKA (diabetic ketoacidoses) Assessment/Plan: Better control Cont levemir/novolog sliding scale Code(s): E13.10 - OTH DIABETES MELLITUS WITH KETOACIDOSIS WITHOUT COMA Qualifiers: Diabetes mellitus type: type 2 Diabetes mellitus complication detail: without coma Qualified Code(s): E13.10 - Other specified diabetes mellitus with ketoacidosis without coma (2) Leukocytosis Assessment/Plan: WBC improving Cont IV zosyn Code(s): D72.829 - ELEVATED WHITE BLOOD CELL COUNT, UNSPECIFIED
[2016-09-18] MEDS: INSULIN SLIDING SCALE (NOVOLOG) 1 VIAL SQ SCH ×4 (06:00→21:39)
[2016-09-18] MEDS: INSULIN DETEMIR 100 UNITS/ML MDV SQ SCH (06:01)
[2016-09-18 06:46] LABS: BASOPHIL 0.5 % (0-2.0); EOSINOPHIL 0.7 % (0-4.5); MCH 30.5 pg (25.7-33.7); MCHC 34.6 g/dl (32.0-35.9); MEAN CELL VOLUME 88.1 fl (80-96); MEAN PLT VOLUME 9.8 fl (7.5-11.1); NEUTROPHILS 61.7 % (42.8-82.8); PLATELET COUNT 139 K/MM3 (134-434); RDW 13.6 % (11.9-15.9)
[2016-09-18 07:35] LABS: ALBUMIN 2.6 g/dl (3.4-5.0); ANION GAP 10 (8-16); CALCIUM 8.1 mg/dL (8.5-10.1); CO2 28 mmol/L (21-32); GLUCOSE,RANDOM 241 mg/dL (74-106); SGOT/AST 17 U/L (15-37); SGPT/ALT 21 U/L (12-78)
[2016-09-18 07:37] LABS: ALK PHOS 68 U/L (45-117); BILIRUBIN,TOTAL 0.4 mg/dL (0.2-1.0); CREATININE 0.6 mg/dL (0.7-1.3); TOT PROT 5.3 g/dl (6.4-8.2)
[2016-09-18] MEDS: HEPARIN NA (PORCINE) 5,000 UNITS/ML 1ML VIAL SQ SCH ×2 (09:53→21:39)
[2016-09-18] MEDS ORDERED: POTASSIUM CHLORIDE TABS 20 MEQ TABLET.ER (FP) PO ONE (14:13)
--- NOTE | 2016-09-18 21:55 | PN ---
Progress Note, Physician History of Present Illness: Pt states that he is feeling weak - Current Medication List Current Medications: Active Medications Heparin Sodium (Porcine) (Heparin -) 5,000 unit SQ BID [facility] Last Admin: 09/18/16 21:39 Dose: 5,000 unit Insulin Aspart (Novolog Vial Sliding Scale -) 1 vial SQ ACHS [facility] PRN Reason: Protocol Last Admin: 09/18/16 21:39 Dose: 2 units Insulin Detemir (Levemir Vial) 35 units SQ AM [facility] Last Admin: 09/18/16 06:01 Dose: 35 units - Objective Vital Signs: Vital Signs Temperature 98.1 F 09/18/16 17:10 Pulse Rate 65 09/18/16 17:10 Respiratory Rate 18 09/18/16 17:10 Blood Pressure 128/89 09/18/16 17:10 O2 Sat by Pulse Oximetry (%) 99 09/18/16 20:23 Constitutional: Yes: No Distress HENT: Yes: WNL Neck: Yes: WNL, Supple Cardiovascular: Yes: WNL, Regular Rate and Rhythm Respiratory: Yes: WNL, Regular, CTA Bilaterally Gastrointestinal: Yes: WNL, Normal Bowel Sounds, Soft Labs: CBC, BMP 09/18/16 06:00 09/18/16 06:00 INR, PTT INR 1.01 (0.82-1.09) 09/15/16 11:45 Problem List - Problems (1) DKA (diabetic ketoacidoses) Assessment/Plan: Better control Cont levemir/novolog sliding scale Code(s): E13.10 - OTH DIABETES MELLITUS WITH KETOACIDOSIS WITHOUT COMA Qualifiers: Diabetes mellitus type: type 2 Diabetes mellitus complication detail: without coma Qualified Code(s): E13.10 - Other specified diabetes mellitus with ketoacidosis without coma (2) Leukocytosis Assessment/Plan: WBC normal Cont IV zosyn Will speak to ID in am about changing antibxs to oral Although pt stated that he felt too weak to go home today Code(s): D72.829 - ELEVATED WHITE BLOOD CELL COUNT, UNSPECIFIED
[2016-09-19] MEDS: INSULIN DETEMIR 100 UNITS/ML MDV SQ SCH (06:17)
[2016-09-19] MEDS: INSULIN SLIDING SCALE (NOVOLOG) 1 VIAL SQ SCH ×4 (06:18→22:45)
[2016-09-19 08:01] LABS: EOSINOPHIL 0.9 % (0-4.5); MCH 30.9 pg (25.7-33.7); MCHC 35.1 g/dl (32.0-35.9); MEAN PLT VOLUME 9.7 fl (7.5-11.1); NEUTROPHILS 59.9 % (42.8-82.8); PLATELET COUNT 135 K/MM3 (134-434); RDW 13.4 % (11.9-15.9); WHITE BLOOD COUNT 5.5 K/mm3 (4.0-10.0)
[2016-09-19 08:24] LABS: ALBUMIN 2.5 g/dl (3.4-5.0); ANION GAP 10 (8-16); CO2 29 mmol/L (21-32); GLUCOSE,RANDOM 194 mg/dL (74-106)
[2016-09-19 08:27] LABS: ALK PHOS 64 U/L (45-117); BILIRUBIN,TOTAL 0.3 mg/dL (0.2-1.0); CREATININE 0.6 mg/dL (0.7-1.3); SGOT/AST 15 U/L (15-37); SGPT/ALT 21 U/L (12-78); TOT PROT 5.2 g/dl (6.4-8.2)
[2016-09-19] MEDS: HEPARIN NA (PORCINE) 5,000 UNITS/ML 1ML VIAL SQ SCH ×2 (09:44→22:45)
--- NOTE | 2016-09-19 11:57 | PN ---
Progress Note, Physician History of Present Illness: stable ding well weakness but better - Current Medication List Current Medications: Active Medications Heparin Sodium (Porcine) (Heparin -) 5,000 unit SQ BID [facility] Last Admin: 09/19/16 09:44 Dose: 5,000 unit Insulin Aspart (Novolog Vial Sliding Scale -) 1 vial SQ ACHS [facility] PRN Reason: Protocol Last Admin: 09/19/16 06:18 Dose: 2 units Insulin Detemir (Levemir Vial) 35 units SQ AM [facility] Last Admin: 09/19/16 06:17 Dose: 35 units Potassium Chloride (K-Dur -) 40 meq PO ONCE ONE Stop: 09/19/16 12:01 - Objective Vital Signs: Vital Signs Temperature 99.5 F 09/19/16 06:02 Pulse Rate 66 09/19/16 06:02 Respiratory Rate 18 09/19/16 06:02 Blood Pressure 113/69 09/19/16 06:02 O2 Sat by Pulse Oximetry (%) 99 09/18/16 20:23 Constitutional: Yes: No Distress, Calm Cardiovascular: Yes: Regular Rate and Rhythm Respiratory: Yes: Regular, CTA Bilaterally Gastrointestinal: Yes: Normal Bowel Sounds, Soft Musculoskeletal: Yes: WNL Extremities: Yes: WNL Neurological: Yes: Alert, Oriented Psychiatric: Yes: Alert, Oriented Labs: CBC, BMP 09/19/16 06:30 09/19/16 06:30 INR, PTT INR 1.01 (0.82-1.09) 09/15/16 11:45 Assessment/Plan - Problems (1) Aspiration into lower respiratory tract Code(s): T17.800A - UNSP FOREIGN BODY IN OTH PRT RESP TRACT CAUSING ASPHYX, INIT Qualifiers: Encounter type: initial encounter Qualified Code(s): T17.800A - Unspecified foreign body in other parts of respiratory tract causing asphyxiation, initial encounter (2) DKA (diabetic ketoacidoses) Code(s): E13.10 - OTH DIABETES MELLITUS WITH KETOACIDOSIS WITHOUT COMA Qualifiers: Diabetes mellitus type: type 2 Diabetes mellitus complication detail: without coma Qualified Code(s): E13.10 - Other specified diabetes mellitus with ketoacidosis without coma plan stable no issues off of all abx rest as per primary
[2016-09-19] MEDS ORDERED: POTASSIUM CHLORIDE TABS 20 MEQ TABLET.ER (FP) PO ONE (12:00)
--- NOTE | 2016-09-19 20:19 | PN ---
Progress Note, Physician - Current Medication List Current Medications: Active Medications Heparin Sodium (Porcine) (Heparin -) 5,000 unit SQ BID [facility] Last Admin: 09/19/16 09:44 Dose: 5,000 unit Insulin Aspart (Novolog Vial Sliding Scale -) 1 vial SQ ACHS [facility] PRN Reason: Protocol Last Admin: 09/19/16 16:54 Dose: Not Given Insulin Detemir (Levemir Vial) 35 units SQ AM [facility] Last Admin: 09/19/16 06:17 Dose: 35 units - Objective Vital Signs: Vital Signs Temperature 98.7 F 09/19/16 16:15 Pulse Rate 66 09/19/16 16:15 Respiratory Rate 20 09/19/16 16:15 Blood Pressure 112/76 09/19/16 16:15 O2 Sat by Pulse Oximetry (%) 99 09/19/16 09:00 Constitutional: Yes: No Distress Eyes: Yes: WNL HENT: Yes: WNL Neck: Yes: WNL, Supple Cardiovascular: Yes: WNL, Regular Rate and Rhythm Respiratory: Yes: WNL, Regular, CTA Bilaterally Gastrointestinal: Yes: WNL, Normal Bowel Sounds, Soft Labs: CBC, BMP 09/19/16 06:30 09/19/16 06:30 INR, PTT INR 1.01 (0.82-1.09) 09/15/16 11:45 Problem List - Problems (1) DKA (diabetic ketoacidoses) Assessment/Plan: Better control Cont levemir/novolog sliding scale Replace K+ Will repeat labs tonight Probable dc in am Code(s): E13.10 - OTH DIABETES MELLITUS WITH KETOACIDOSIS WITHOUT COMA Qualifiers: Diabetes mellitus type: type 2 Diabetes mellitus complication detail: without coma Qualified Code(s): E13.10 - Other specified diabetes mellitus with ketoacidosis without coma (2) Leukocytosis Assessment/Plan: Resolved Pt is off antibxs and has normal WBC Code(s): D72.829 - ELEVATED WHITE BLOOD CELL COUNT, UNSPECIFIED
[2016-09-20] MEDS: INSULIN SLIDING SCALE (NOVOLOG) 1 VIAL SQ SCH ×3 (06:46→17:36)
[2016-09-20] MEDS: INSULIN DETEMIR 100 UNITS/ML MDV SQ SCH (06:46)
[2016-09-20] MEDS ORDERED: INSULIN (NOVOLOG) ASPART 100 UNITS/ML 10ML VIAL ONE (06:51)
[2016-09-20] MEDS: HEPARIN NA (PORCINE) 5,000 UNITS/ML 1ML VIAL SQ SCH (09:36)
--- NOTE | 2016-09-20 13:36 | PN ---
Progress Note, Physician History of Present Illness: no new issues or events - Current Medication List Current Medications: Active Medications Heparin Sodium (Porcine) (Heparin -) 5,000 unit SQ BID [facility] Last Admin: 09/20/16 09:36 Dose: 5,000 unit Insulin Aspart (Novolog Vial Sliding Scale -) 1 vial SQ ACHS [facility] PRN Reason: Protocol Last Admin: 09/20/16 13:35 Dose: Not Given Insulin Detemir (Levemir Vial) 35 units SQ AM [facility] Last Admin: 09/20/16 06:46 Dose: 35 units - Objective Vital Signs: Vital Signs Temperature 99 F 09/20/16 09:00 Pulse Rate 74 09/20/16 09:00 Respiratory Rate 20 09/20/16 09:00 Blood Pressure 128/54 09/20/16 09:00 O2 Sat by Pulse Oximetry (%) 99 09/20/16 09:00 Constitutional: Yes: No Distress, Calm Cardiovascular: Yes: Regular Rate and Rhythm Respiratory: Yes: Regular, CTA Bilaterally Gastrointestinal: Yes: Normal Bowel Sounds, Soft Musculoskeletal: Yes: WNL Extremities: Yes: WNL Neurological: Yes: Alert, Oriented Psychiatric: Yes: Alert, Oriented Labs: CBC, BMP 09/19/16 06:30 INR, PTT INR 1.01 (0.82-1.09) 09/15/16 11:45 Assessment/Plan - Problems (1) Aspiration into lower respiratory tract Code(s): T17.800A - UNSP FOREIGN BODY IN OTH PRT RESP TRACT CAUSING ASPHYX, INIT Qualifiers: Encounter type: initial encounter Qualified Code(s): T17.800A - Unspecified foreign body in other parts of respiratory tract causing asphyxiation, initial encounter (2) DKA (diabetic ketoacidoses) Code(s): E13.10 - OTH DIABETES MELLITUS WITH KETOACIDOSIS WITHOUT COMA Qualifiers: Diabetes mellitus type: type 2 Diabetes mellitus complication detail: without coma Qualified Code(s): E13.10 - Other specified diabetes mellitus with ketoacidosis without coma plan stable no issues off of all abx rest as per primary
[2016-09-20 13:46] LABS: ALK PHOS 84 U/L (45-117); ANION GAP 7 (8-16); BILIRUBIN,TOTAL 0.3 mg/dL (0.2-1.0); CALCIUM 8.6 mg/dL (8.5-10.1); CO2 34 mmol/L (21-32); CREATININE 0.7 mg/dL (0.7-1.3); GLUCOSE,RANDOM 141 mg/dL (74-106); SGOT/AST 19 U/L (15-37); SGPT/ALT 27 U/L (12-78); TOT PROT 6.4 g/dl (6.4-8.2)
[2016-09-20 17:59] VITALS: BP 101/62; PULSE 72; TEMP 98.9
== END 2016-09-20 18:54 | disposition home or self-care (01) | DRG 420 ==
LOC: JER 10:26 → JERBED 13:49 → JICU 17:46 → J8W 09-16 18:35
PROVIDERS: ADMIT Internal Medicine; ATTEND Internal Medicine
DX: E13.10 Other specified diabetes mellitus with ketoacidosis without coma (principal); D72.829 Elevated white blood cell count, unspecified; E10.42 Type 1 diabetes mellitus with diabetic polyneuropathy; R11.2 Nausea with vomiting, unspecified; T17.800A Unspecified foreign body in other parts of respiratory tract causing asphyxiation, initial encounter
CPT/HCPCS: 36415; 36600; 71010-TC; 80048; 80053; 81003; 81015; 82009; 82150; 82375; 82550; 82803; 83036; 83050; 83690; 83735; 83930; 84100; 84484; 85025; 85027; 85610; 87040; 87086; 90670; 93005; 93010; 99284-25; J1644